=== PATIENT | male | born 2000 | race Caucasian/White ===

== ENCOUNTER 2021-02-03 05:23 | Emergency (ER) | payer OTHER ==
[2021-02-03] MEDS ORDERED: Sodium Chloride 0.9% 1000 ML 1,000 ML IV STA (05:48)
[2021-02-03] MEDS ORDERED: Sodium Chloride 0.9% 1000 ML 1,000 ML ONE (06:04)
[2021-02-03 06:13] LABS: Absolute Neutrophil Ct (ANC) 2.96 (1.4-6.9); BASOPHIL % 0.7 % (0.0-0.4); Basophil (Absolute #) 0.05 (0-0.4); Eosinophil % 3.6 % (0.00-5.0); Eosinophil (Absolute #) 0.24 (0-0.5); Hematocrit 43.3 % (42-50); Hemoglobin 15.3 gm/dl (12.5-18.0); Lymphocyte (Absolute #) 3.08 (1.0-4.6); Mean Cell Volume 89.1 fl (78-100); Mean Corpuscular Hemoglobin 31.5 pg (26-32); Mean Corpuscular Hgb Concent. 35.3 g/dl (32-36); Mean Platelet Volume 10.8 fl (7.5-11.0); Monocyte (Absolute #) 0.37 (0.0-1.3); Monocytes % 5.5 % (0.0-12.0); Neutrophil % 44.2 % (36.0-66.0); Platelet Count 178 K/mm3 (150-450); Red Blood Count 4.86 M/mm3 (4.1-5.6); Red Cell Distribution Width 12.8 % (11.5-14.0); White Blood Count 6.7 K/mm3 (4.0-10.5)
[2021-02-03 06:33] LABS: ACETAMINOPHEN < 10 ug/ml (10-30); ALBUMIN 4.8 g/dL (3.5-5.0); ALKALINE PHOSPHATASE 60 U/L (38-126); ANION GAP 15.5 MEQ/L (5-15); BLOOD UREA NITROGEN 10 mg/dL (9-20); CHLORIDE 106 mmol/L (98-107); Carbon Dioxide 28 mmol/L (22-30); Creatinine 1 1.13 mg/dL (0.66-1.25); EST GLOMERULAR FILTRATION RATE > 60.0 ML/MIN; ETHYL ALCOHOL 214 mg/dL (0-10); Glucose 90 mg/dL (74-106); Potassium 4.2 mmol/L (3.5-5.1); SALICYLATE < 1.0 mg/dL (2-20); SGOT/AST 28 U/L (17-59); SGPT/ALT 20 U/L (0-50); SODIUM 145 mmol/L (137-145); Total Protein 7.6 g/dL (6.3-8.2)
--- NOTE | 2021-02-03 06:35 | ERPHSYRPT ---
- History of Present Illness Source: patient, family, EMS Exam Limitations: intoxication Patient Subjective Stated Complaint: ems states that pt started drinking approx. 3 hours prior to arrival, and drank approx 1/2 bottle of vodka and took 2 tablets of ativan 0.5mg. pt was hard to rouse at home so pt's s/o contacted [place] crisis hotline who called dispatch to do a well check on pt. Triage Nursing Assessment: pt wakes easily, answers questions. slurred speech noted. pupils equal and reactive. respirations nonlabored with lungs cta. skin warm and dry. pt arrive per ambulance and transfers to stretcher per self. Hx Tetanus, Diphtheria Vaccination/Date Given: Yes Immunizations Up to Date: Yes <EARNEST SMITH - Last Filed: 02/03/21 06:29> <HOLLY COLLINS - Last Filed: 02/03/21 10:03> - History of Present Illness Time Seen by Provider: 02/03/21 05:28 Physician History: 20 years old with history of anxiety, PTSD, insomnia is brought in the ER via EMS after has difficult time waking him up from sleep. Per report patient drank almost fifth of vodka almost 3 hours ago, called [place] crisis line which patient could not tell me why. Later on he took 2 tablets of 0.5 mg lorazepam and went to sleep. was not able to wake him up and in the meanwhile [place] crisis line called dispatch to keep a check on patient. On PD arrival patient was very sleepy and EMS was called. Patient denies taking alcohol and lorazepam for any suicidal attempt. Per patient does not drink every day. He is sleepy on presentation but arousable to verbal commands and answering most of questions appropriately. He denies any chest pain palpitations shortness of breath. No abdominal pain nausea or vomiting. (EARNEST SMITH) Allergies/Adverse Reactions: No Known Drug Allergies Allergy (Verified 02/03/21 05:58) Home Medications: Hydroxyzine HCl 25 mg [Atarax 25 mg] 25 mg PO HSPRN PRN 02/03/21 [History] Lorazepam 0.5 mg [Ativan 0.5 MG] 0.5 mg PO HSPRN PRN 04/22/21 [History] Travel Risk - International Travel Have you traveled outside of the country in past 3 weeks: No - Coronavirus Screening Are you exhibiting any of the following symptoms?: No Close contact with a COVID-19 positive Pt in past 14-21 Days: No - Vaccine Status Have you recieved a Covid-19 vaccination: No <EARNEST SMITH Last Filed: 02/03/21 06:29> - Past Medical History Pertinent Past Medical History: No - Past Surgical History Past Surgical History: No - Social History Smoking Status: Former smoker Exposure to second hand smoke: No Drug Use: none Patient Lives Alone: No <EARNEST SMITH - Last Filed: 02/03/21 06:29> - Review of Systems Constitutional: Fatigue Eyes: No Symptoms Ears, Nose, & Throat: No Symptoms Respiratory: No Symptoms Cardiac: No Symptoms Abdominal/Gastrointestinal: No Symptoms Genitourinary Symptoms: No Symptoms Musculoskeletal: No Symptoms Skin: No Symptoms Neurological: No Symptoms Psychological: Alcohol Abuse, Anxiety Endocrine: No Symptoms Hematologic/Lymphatic: No Symptoms Immunological/Allergic: No Symptoms <EARNEST SMITH - Last Filed: 02/03/21 06:29> - Physical Exam General Appearance: no apparent distress, other (Sleepy but arousable) Eyes, Ears, Nose, Throat Exam: normal ENT inspection, TMs normal, pharynx normal Neck Exam: normal inspection, non-tender, supple, full range of motion Respiratory Exam: normal breath sounds, lungs clear Cardiovascular Exam: regular rate/rhythm, normal heart sounds Gastrointestinal/Abdominal Exam: soft, normal bowel sounds, No tenderness Extremities Exam: normal inspection, normal range of motion Current Suicidality: denies suicide plan Neurological Exam: alert, calm, 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 as tested, oriented x 3, flat Appearance: appropriate appearance, denies illness Behavior/Eye Contact/Speech: alert & cooperative, cooperative, avoids eye contact Thoughts/Hallucinations: no apparent hallucination Skin Exam: normal color SpO2 Interpretation: normal SpO2: 99 O2 Delivery: Room Air <EARNEST SMITH - Last Filed: 02/03/21 06:29> - Nursing Vital Signs Nursing Vital Signs: Initial Vital Signs Temperature 98.3 F 02/03/21 05:29 Pulse Rate 100 H 02/03/21 05:29 Respiratory Rate 16 02/03/21 05:29 Blood Pressure 143/95 02/03/21 05:29 O2 Sat by Pulse Oximetry 99 02/03/21 05:29 Pain Scale Pain Intensity 0 Ordered Tests: Active Orders 24 hr Category Date Time Status ACETAMINOPHEN Stat Lab 02/03/21 06:05 Completed CBC W DIFF Stat Lab 02/03/21 06:05 Completed CMP Stat Lab 02/03/21 06:05 Completed ETHYL ALCOHOL Stat Lab 02/03/21 06:05 Completed ETHYL ALCOHOL Stat Lab 02/03/21 09:23 Received SALICYLATE Stat Lab 02/03/21 06:05 Completed UA W/RFX UR CULTURE Stat Lab 02/03/21 06:53 Completed Urine Triage Profile Stat Lab 02/03/21 06:53 Ordered Urine Triage Profile Stat Lab 02/03/21 09:13 Ordered Transfer Order Routine Transfer 02/03/21 Ordered Medication Summary Discontinued Medications Generic Name Dose Route Start Last Admin Trade Name Dilma PRN Reason Stop Dose Admin Sodium Chloride 1,000 mls @ 999 mls/hr 02/03/21 05:48 02/03/21 06:06 Sodium Chloride 0.9% 1000 Ml IV 02/03/21 06:48 999 mls/hr .Q1H1M STA Administration Sodium Chloride Confirm 02/03/21 06:04 Sodium Chloride 0.9% 1000 Ml Administered 02/03/21 06:05 Dose 1,000 mls @ ud .ROUTE .STK-MED ONE Lab/Rad Data: Laboratory Result Diagrams 02/03/21 06:05 02/03/21 06:05 Laboratory Results 02/03/21 02/03/21 02/03/21 Range/Units 06:53 06:05 06:05 WBC 6.7 (4.0-10.5) K/mm3 RBC 4.86 (4.1-5.6) M/mm3 Hgb 15.3 (12.5-18.0) gm/dl Hct 43.3 (42-50) % MCV 89.1 (78-100) fl MCH 31.5 (26-32) pg MCHC 35.3 (32-36) g/dl RDW 12.8 (11.5-14.0) % Plt Count 178 (150-450) K/mm3 MPV 10.8 (7.5-11.0) fl Gran % 44.2 (36.0-66.0) % Eos # (Auto) 0.24 (0-0.5) Absolute Lymphs (auto) 3.08 (1.0-4.6) Absolute Monos (auto) 0.37 (0.0-1.3) Lymphocytes % 46.0 H (24.0-44.0) % Monocytes % 5.5 (0.0-12.0) % Eosinophils % 3.6 (0.00-5.0) % Basophils % 0.7 (0.0-0.4) % Absolute Granulocytes 2.96 (1.4-6.9) Basophils # 0.05 (0-0.4) Sodium 145 (137-145) mmol/L Potassium 4.2 (3.5-5.1) mmol/L Chloride 106 (98-107) mmol/L Carbon Dioxide 28 (22-30) mmol/L Anion Gap 15.5 H (5-15) MEQ/L BUN 10 (9-20) mg/dL Creatinine 1.13 (0.66-1.25) mg/dL Estimated GFR > 60.0 ML/MIN Glucose 90 (74-106) mg/dL Calcium 9.0 (8.4-10.2) mg/dL Total Bilirubin 0.40 (0.2-1.3) mg/dL AST 28 (17-59) U/L ALT 20 (0-50) U/L Alkaline Phosphatase 60 (38-126) U/L Serum Total Protein 7.6 (6.3-8.2) g/dL Albumin 4.8 (3.5-5.0) g/dL Urine Color STRAW (YELLOW) Urine Appearance CLEAR (CLEAR) Urine pH 6.0 (5-6) Ur Specific Adah 1.006 (1.005-1.025) Urine Protein NEGATIVE (Negative) Urine Ketones NEGATIVE (NEGATIVE) Urine Blood NEGATIVE (0-5) Bruce/ul Urine Nitrite NEGATIVE (NEGATIVE) Urine Bilirubin NEGATIVE (NEGATIVE) Urine Urobilinogen NEGATIVE (0-1) mg/dL Ur Leukocyte Esterase NEGATIVE (NEGATIVE) Urine WBC (Auto) NONE (0-5) /HPF Urine RBC (Auto) NONE (0-2) /HPF U Epithel Cells (Auto) NONE (FEW) /HPF Urine Bacteria (Auto) NONE (NEGATIVE) /HPF Urine Mucus (Auto) SLIGHT (NEGATIVE) /HPF Urine Culture Reflexed NO (NO) Urine Glucose NEGATIVE (NEGATIVE) mg/dL Salicylates < 1.0 L (2-20) mg/dL Acetaminophen < 10 L (10-30) ug/ml Ethyl Alcohol 214 H (0-10) mg/dL - Progress Counseled pt/family regarding: lab results, diagnosis <EARNEST SMITH - Last Filed: 02/03/21 06:29> - Progress Progress: improved Counseled pt/family regarding: lab results, diagnosis <HOLLY COLLINS - Last Filed: 02/03/21 10:03> - Progress Progress Note: 02/03/21 06:56 20 years old is evaluated for alcohol intoxication with some lorazepam when he was difficult to arouse by . Patient is sleepy but easily arousable. Grossly nonfocal neuro exam. Do not know exactly why did he call crisis hotline and they wanted to later check on him. This could be possible that he mentions some suicidal ideations although he denies. Once patient is medically cleared he would be evaluated by behavioral health for final disposition. I have discussed history work-up and plan with Dr. Collins at shift change and he will make final disposition as patient cannot be medically cleared with his alcohol up to214. (EARNEST SMITH) 02/03/21 07:09 Medical decision making: This patient has been IDed by the police department. He is too intoxicated at this point to be evaluated by behavioral health services. I spoke with Dr. Shipley about placing this patient in observation until he is cleared medically to be evaluated by behavioral health. I reviewed the patient history and physical condition with Dr. Shipley. He agrees that the patient should be placed in observation. 02/03/21 07:27 The patient appears well he may attempt to elope. I had a long discussion with him regarding the need to stay in the hospital and not elope. He was told that his ID will be changed to emergency longterm and that his 24-hour requirement of staying in a facility will automatically be increased to 72 hours. Patient voices understanding but is still thinking about leaving. I did tell him that [facility]acy dum[facility] would send the police after him to bring him back and he would be detained for at least 72 hours in a behavioral health facilityinpatient. 02/03/21 10:02 The [facility] was again contacted. The patient history and condition was reviewed with the [facility] in [place]. They do accept him for transfer and psychiatric admission there at the facility. We are awaiting the patient's repeat alcohol level and urinary drug triage. He will then be transferred to that facility. (HOLLY COLLINS) - Departure Critical Care Time: No <EARNEST SMITH - Last Filed: 02/03/21 06:29> - Departure Departure Disposition: Transfer Critical Care Time: No <HOLLY COLLINS - Last Filed: 02/03/21 10:03> - Departure Clinical Impression: Alcohol intoxication Qualifiers: Complication of substance-induced condition: with unspecified complication Qualified Code(s): F10.929 - Alcohol use, unspecified with intoxication, unspecified Condition: Stable Referrals: DOCTOR,NO FAMILY [Primary Care Provider] -
[2021-02-03 07:14] LABS: Appearance CLEAR (CLEAR); Bilirubin NEGATIVE (NEGATIVE); Blood NEGATIVE Ery/ul (0-5); Glucose NEGATIVE (NEGATIVE); Ketones NEGATIVE (NEGATIVE); Leukocyte Esterase NEGATIVE (NEGATIVE); Mucus SLIGHT /HPF (NEGATIVE); Nitrite NEGATIVE (NEGATIVE); Protein,Urine Dip NEGATIVE (Negative); Specific Gravity 1.006 (1.005-1.025); Urobilinogen NEGATIVE mg/dL (0-1)
[2021-02-03 10:24] LABS: Amphetamine,Urine NEGATIVE (NEGATIVE); Barbiturate,Urine NEGATIVE (NEGATIVE); Benzodiazepine,Urine NEGATIVE (NEGATIVE); Cocaine,Urine NEGATIVE (NEGATIVE); Methadone,Urine NEGATIVE (NEGATIVE); Opiate,Urine NEGATIVE (NEGATIVE); PCP,Urine NEGATIVE (NEGATIVE); THC,Urine NEGATIVE (NEGATIVE)
[2021-02-03 12:09] LABS: COVID AG -BINAX NOW RAPID TEST NEGATIVE (NEGATIVE)
[2021-02-03 15:21] VITALS: BP 130/86; PULSE 78; O2SAT 98
== END 2021-02-03 16:47 ==
LOC: ED 05:23
DX: F10.929 Alcohol use, unspecified with intoxication, unspecified (principal)
CPT/HCPCS: 36000; 36415; 80053; 80307; 81001; 85025; 96360; 99000; 99285; G0480; 96361

== ENCOUNTER 2022-05-25 22:36 | Emergency (ER) | payer OTHER ==
[2022-05-25 22:42] VITALS: BP 164/104; PULSE 93; O2SAT 97
--- NOTE | 2022-05-25 23:12 | ERPHSYRPT ---
- History of Present Illness Time Seen by Provider: 05/25/22 22:50 Source: patient Exam Limitations: no limitations Patient Subjective Stated Complaint: I punched a wall and now my hand is swollen Triage Nursing Assessment: pt ambulated into ER. Pt c/o rt hand pain, pt was mad and punched the wall this evening. Rt little finger is swollen at the knuckle area. Pt has very minimal movement in pinky finger. Physician History: Patient 21-year-old male presents to emergency department for evaluation of pain to his right hand. Patient states he became upset and punched a wall. Injury occurred prior to arrival. Pain described as an ache that is localized to the right fifth MCP. No other injuries reported. No wrist elbow or shoulder pain. No BHT or LOC. Patient declined pain medication. Symptoms are mild to moderate in intensity. Pain worse with movement and palpation. Pain improved with rest. Patient voices no other complaints or concerns at this time. Portions of this note were created with voice recognition technology. There may be grammatical, spelling, punctuation or sound alike errors Occurred: just prior to arrival Method of Injury: other (Punched a wall) Quality: aching Severity of Pain-Max: mild Extremities Pain Location: 5th finger: right Modifying Factors: Improves With: nothing Associated Symptoms: none Allergies/Adverse Reactions: No Known Drug Allergies Allergy (Verified 05/25/22 22:49) Hx Tetanus, Diphtheria Vaccination/Date Given: Yes Hx Influenza Vaccination/Date Given: No Hx Pneumococcal Vaccination/Date Given: No Immunizations Up to Date: Yes Travel Risk - International Travel Have you traveled outside of the country in past 3 weeks: No - Coronavirus Screening Are you exhibiting any of the following symptoms?: No Close contact with a COVID-19 positive Pt in past 14-21 Days: No - Vaccine Status Have you recieved a Covid-19 vaccination: Yes 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 - Review of Systems Constitutional: No Symptoms, No Fever, No Chills Eyes: No Symptoms Ears, Nose, & Throat: No Symptoms Respiratory: No Symptoms, No Cough, No Dyspnea Cardiac: No Symptoms, No Chest Pain, No Edema, No Syncope Abdominal/Gastrointestinal: No Symptoms, No Abdominal Pain, No Nausea, No Vomiting, No Diarrhea Genitourinary Symptoms: No Symptoms, No Dysuria Musculoskeletal: No Symptoms, No Back Pain, No Neck Pain Skin: No Symptoms, No Rash Neurological: No Symptoms, No Dizziness, No Focal Weakness, No Sensory Changes Psychological: No Symptoms Endocrine: No Symptoms All Other Systems: Reviewed and Negative - Past Medical History Pertinent Past Medical History: Yes Other Medical History: REM sleeping disorder - Past Surgical History Past Surgical History: No - Social History Smoking Status: Never smoker Exposure to second hand smoke: No Drug Use: other Patient Lives Alone: No - Nursing Vital Signs Nursing Vital Signs: Initial Vital Signs Temperature 98.4 F 05/25/22 22:41 Pulse Rate 93 H 05/25/22 22:41 Respiratory Rate 18 05/25/22 22:41 Blood Pressure 164/104 05/25/22 22:41 O2 Sat by Pulse Oximetry 97 05/25/22 22:41 Pain Scale Pain Intensity 3 - Physical Exam General Appearance: no apparent distress, alert Eyes, Ears, Nose, Throat Exam: normal ENT inspection, TMs normal, moist mucous membranes Neck Exam: non-tender, supple Cardiovascular/Respiratory Exam: chest non-tender, normal breath sounds, regular rate/rhythm, no respiratory distress Abdominal Exam: non-tender, soft, No guarding Back Exam: normal inspection, normal range of motion, No vertebral tenderness Shoulder Exam: normal inspection, non-tender, no evidence of injury, normal ROM Elbow/Forearm Exam: normal inspection, non-tender, no evidence of injury, normal ROM Wrist Exam: normal inspection, non-tender, no evidence of injury, normal ROM Hand Exam: swelling (Swelling at fifth MCP.) Neuro/Tendon Exam: normal sensation, normal motor functions Mental Status Exam: alert, oriented x 3, cooperative Skin Exam: normal color, warm, dry SpO2 Interpretation: normal SpO2: 97 O2 Delivery: Room Air - Course Nursing assessment & vital signs reviewed: Yes - Radiology Exams Hand X-ray Interpretation: Interpreted by me (Boxer's fracture) Ordered Tests: Active Orders 24 hr Category Date Time Status HAND (2 VIEW) Stat Exams 05/25/22 23:05 Taken - Progress Progress: improved Progress Note: 21-year-old male presents to our ED with pain to his fifth metacarpal. X-ray reveals a boxer's fracture. There is angulation. Patient referred to orthopedic clinic. Patient will be seen tomorrow in the clinic for evaluation and treatment. Patient placed in a splint. Patient neurovascular intact distally before and after splint application. Patient understands the importance to follow-up with orthopedic clinic tomorrow morning Portions of this note were created with voice recognition technology. There may be grammatical, spelling, punctuation or sound alike errors 05/25/22 23:12 Counseled pt/family regarding: diagnosis, need for follow-up, rad results - Departure Departure Disposition: Home Clinical Impression: Boxers fracture Condition: Stable Critical Care Time: No Instructions: Hand Fracture (DC) Prescriptions: Ketorolac Trometh 10 mg Tab [TORAdol 10 MG TABLET] 10 mg PO TID 5 Days #15 tablet Outpatient Orders: Ortho Referral Time Frame: 1 Day, Facility: [facility], Location: ORTHO CLINIC
--- NOTE | 2022-05-26 08:59 | XRAY ---
Indication: Pain following punching injury. Comparison: None 3 view right hand demonstrates moderately angulated fracture distal shaft 5th metacarpal with soft tissue swelling. No other bony, articular, or soft tissue abnormalities.
== END 2022-05-25 23:25 | disposition home or self-care (01) ==
LOC: ED 22:36
DX: S62.326A Displaced fracture of shaft of fifth metacarpal bone, right hand, initial encounter for closed fracture (principal); W22.01XA Walked into wall, initial encounter; M79.644 Pain in right finger(s)
CPT/HCPCS: 29125; 73120; 99282